=== PATIENT | female | born 1985 | race Caucasian/White ===

== ENCOUNTER 2016-11-11 07:32 | Emergency (ER) | payer OTHER ==
[2016-11-11] MEDS ORDERED: ZOFRAN IV ONE (07:47)
[2016-11-11] MEDS ORDERED: NS 1,000 ML IV ONE (07:47)
[2016-11-11] MEDS ORDERED: MORPHINE IV ONE (07:49)
[2016-11-11 08:39] LABS: MANUAL DIFF NEEDED? NO
[2016-11-11 08:43] LABS: BASO% 0.2 % (0.0-0.8); EOS# 0.27 X1000 (0.0-0.7); EOS% 4.2 % (0.0-10.0); HEMATOCRIT 32.3 % (37.0-47.0); HEMOGLOBIN 9.8 g/dL (12.0-16.0); LYMPH# 1.56 X1000 (1.2-3.4); LYMPH% 24.1 % (20.5-51.1); MCHC 30.3 g/dL (33-37); MONO% 6.2 % (1.7-9.3); MPV 10.2 FL (7.4-10.4); NEUT% 65.3 % (42.2-75.2); PLT 227 X1000 (130-400); RBC 4.09 XMIL (4.2-5.4)
--- NOTE | 2016-11-11 08:44 | PROVIDER DOCUMENTATION ---
HPI-Abdominal Pain/GI Problem - General Chief Complaint: Post Op Complaint Stated Complaint: POST OP COMPLAINT,NEAR SYNCOPE Time Seen by Provider: 11/11/16 07:46 Source: patient Allergies/Adverse Reactions: Patient Allergies Allergy/AdvReac Type Severity Reaction Status Date / Time shellfish derived Allergy Unknown Verified 11/11/16 08:03 Home Medications: Home Medication List Medication Instructions Recorded Confirmed Last Taken Type Estradiol 10 mg PO DAILY 11/11/16 11/11/16 11/11/16 History Hydrocodone/Acetaminophen [[place] 1 each PO Q4-6H PRN PRN 11/11/16 11/11/1611/11 History 7.5-325 Tablet] Nitrofurantoin Monohyd/M-Cryst 100 mg PO BID #20 capsule 11/11/16 Unknown Rx [Macrobid 100 mg Capsule] Tramadol [Ultram] 50 mg PO Q8HR PRN #10 tablet 11/11/16 Unknown Rx - History of Present Illness-ABD Nature of Presenting Problems: Reports abd pain with off and on post op bleeding since her hyst on 10/19/[address] Dye at [facility]. Was checked out at [facility] ER X [address] scan etc done. Saw Dr. Dye 4 days ago at his office. He put some brown staff at her wound. Reports her bleeding worsened and soaked 5 pads since last night. Pt r/o pain meds. Abdominal Pain Onset Location: reports: suprapubic Pain Radiation: reports: no radiation Quality of Pain: reports: aching, cramping, sharp Severity in ED: reports: moderate Onset/Duration: reports: other (More than 3 weeks ago) Timing: reports: still present Activities at Onset: reports: none Exposure to sick contacts?: No Modifying Factors: improves with: lying down, rest. worse with: movement Associated Symptoms: reports: nausea, vomiting. denies: anxiety, seizure Last BM: unsure Rectal Bleeding: reports: none Rectal Pain: reports: none Bruising or Bleeding Gums?: No Similar Symptoms Previously?: Yes Recently seen or treated by another doctor?: Yes Review of Systems - Adult - REVIEW OF SYSTEMS - ADULT Constitutional: reports: no symptoms reported, fatique. denies: chills, fever Eyes: reports: no symptoms reported Ears, Nose, Mouth & Throat: reports: no symptoms reported Cardiovascular: reports: no symptoms reported Respiratory: reports: no symptoms reported Gastrointestinal: reports: no symptoms reported Genitourinary: reports: no symptoms reported, see HPI. denies: frequent UTI's, hematuria, hesitency, urinary retention Musculoskeletal: reports: no symptoms reported Integumentary: reports: no symptoms reported Neurological: reports: no symptoms reported Psychiatric: reports: no symptoms reported Endocrine: reports: no symptoms reported Allergic/Immunologic: reports: no symptoms reported All Other Systems: Reviewed and Negative Past History - Adult - PAST MEDICAL HISTORY-ADULT Review of Records: reports: Nursing Assessment Review, Medications Reviewed, Social history reviewed & non-contributory. Physical Exam-General - CONSTITUTIONAL General Appearance: alert, no apparent distress - EYES Eyes: PERRL/EOMI, pink conjunctivae - HEAD, EARS, NOSE, MOUTH & THROAT HENMT: normocephalic/atraumatic, moist mucous membranes, normal ENT inspection, TMs normal, pharynx normal - NECK Neck: non-tender, full range of motion, supple - RESPIRATORY Respiratory: chest non-tender, lungs clear, normal breath sounds, no pleuratic chest pain, no respiratory distress, no accessory muscle use - CARDIOVASCULAR Cardiovascular: normal peripheral pulses, regular rate, rhythm, no edema, no gallop, no JVD - GASTROINTESTINAL (ABDOMEN) Abdominal Exam: normal bowel sounds, soft, no organomegaly, no pulsatile mass, tenderness (Diffused suprapubic tenderness, no guarding and no rebound.). negative: distended, rigid, rebound, hernia, mass, hepatomegaly, spleenomegaly, McBurney's point tenderness, prominent aortic pulsations - GENITOURINARY Female Genitalia/Pelvic Exam: other (External genitalia area normal appearance. Pt has a tiny spot of old blood in the hygine pat.) Rectal Exam: deferred - LYMPHATIC Lymphatic: no adenopathy Progress - PLAN OF CARE/RESULTS Progress/Plan/Lab Results: Laboratory Results - last 24 hr 11/11/16 11/11/16 11/11/16 08:18 08:18 08:18 WBC 6.47 RBC 4.09 L Hgb 9.8 L Hct 32.3 L MCV 79.0 L MCH 24.0 L MCHC 30.3 L RDW Std Deviation 15.8 H Plt Count 227 MPV 10.2 Immature Gran % (Auto) 0.0 Neut % (Auto) 65.3 Lymph % (Auto) 24.1 Pershing % (Auto) 6.2 Eos % (Auto) 4.2 Baso % (Auto) 0.2 Immature Gran # (Auto) 0.00 Neut # (Auto) 4.23 Lymph # (Auto) 1.56 Pershing # (Auto) 0.40 Eos # (Auto) 0.27 Baso # (Auto) 0.01 PT INR PTT (Actin FS) D-Dimer 0.60 H Sodium 139 Potassium 3.7 Chloride 100 Carbon Dioxide 26 Anion Gap 13 BUN 7 L Creatinine 0.7 Estimated GFR/1.73 m2 > 60 BUN/Creatinine Ratio 10 Glucose 85 Calculated Osmolality 275 Calcium 9.6 Total Bilirubin 0.68 AST 14 ALT 6 L Alkaline Phosphatase 87 Total Protein 7.6 Albumin 4.3 Globulin 3.3 Albumin/Globulin Ratio 1.3 Amylase 20 Lipase 17 Urine Source Urine Color Urine Turbidity Urine pH Ur Specific [place] Urine Protein Ur Glucose (Stick) Ur Ketones (Stick) Urine Blood Urine Nitrite Urine Bilirubin Urobilinogen Dipstick Urine Leukocytes Urine WBC (Auto) Urine RBC (Auto) U Epithel Cells (Auto) Urine Bacteria (Auto) Urine Opiates Screen Ur Oxycodone Screen Ur Methadone, Qual Ur Barbiturates Screen Ur Phencyclidine Scrn Ur Amphetamines Screen U Benzodiazepines Scrn Urine Cocaine Screen U Cannabinoids Screen Plasma/Serum Ethyl Alc 11/11/16 11/11/16 11/11/16 08:18 08:18 08:36 WBC RBC Hgb Hct MCV MCH MCHC RDW Std Deviation Plt Count MPV Immature Gran % (Auto) Neut % (Auto) Lymph % (Auto) Pershing % (Auto) Eos % (Auto) Baso % (Auto) Immature Gran # (Auto) Neut # (Auto) Lymph # (Auto) Pershing # (Auto) Eos # (Auto) Baso # (Auto) PT 11.4 INR 1.07 PTT (Actin FS) 30.4 D-Dimer Sodium Potassium Chloride Carbon Dioxide Anion Gap BUN Creatinine Estimated GFR/1.73 m2 BUN/Creatinine Ratio Glucose Calculated Osmolality Calcium Total Bilirubin AST ALT Alkaline Phosphatase Total Protein Albumin Globulin Albumin/Globulin Ratio Amylase Lipase Urine Source CLEAN CATCH Urine Color YELLOW Urine Turbidity CLEAR Urine pH 5.5 Ur Specific [place] 1.006 Urine Protein NEGATIVE Ur Glucose (Stick) NEGATIVE Ur Ketones (Stick) NEGATIVE Urine Blood MODERATE A Urine Nitrite NEGATIVE Urine Bilirubin NEGATIVE Urobilinogen Dipstick NORMAL Urine Leukocytes MODERATE A Urine WBC (Auto) 10-20 A Urine RBC (Auto) TNTC A U Epithel Cells (Auto) <10 Urine Bacteria (Auto) NEGATIVE Urine Opiates Screen Ur Oxycodone Screen Ur Methadone, Qual Ur Barbiturates Screen Ur Phencyclidine Scrn Ur Amphetamines Screen U Benzodiazepines Scrn Urine Cocaine Screen U Cannabinoids Screen Plasma/Serum Ethyl Alc 11/11/16 08:36 WBC RBC Hgb Hct MCV MCH MCHC RDW Std Deviation Plt Count MPV Immature Gran % (Auto) Neut % (Auto) Lymph % (Auto) Pershing % (Auto) Eos % (Auto) Baso % (Auto) Immature Gran # (Auto) Neut # (Auto) Lymph # (Auto) Pershing # (Auto) Eos # (Auto) Baso # (Auto) PT INR PTT (Actin FS) D-Dimer Sodium Potassium Chloride Carbon Dioxide Anion Gap BUN Creatinine Estimated GFR/1.73 m2 BUN/Creatinine Ratio Glucose Calculated Osmolality Calcium Total Bilirubin AST ALT Alkaline Phosphatase Total Protein Albumin Globulin Albumin/Globulin Ratio Amylase Lipase Urine Source Urine Color Urine Turbidity Urine pH Ur Specific [place] Urine Protein Ur Glucose (Stick) Ur Ketones (Stick) Urine Blood Urine Nitrite Urine Bilirubin Urobilinogen Dipstick Urine Leukocytes Urine WBC (Auto) Urine RBC (Auto) U Epithel Cells (Auto) Urine Bacteria (Auto) Urine Opiates Screen PRESUMPTIVE POSITIVE A Ur Oxycodone Screen NONE DETECTED Ur Methadone, Qual NONE DETECTED Ur Barbiturates Screen NONE DETECTED Ur Phencyclidine Scrn NONE DETECTED Ur Amphetamines Screen NONE DETECTED U Benzodiazepines Scrn NONE DETECTED Urine Cocaine Screen NONE DETECTED U Cannabinoids Screen NONE DETECTED Plasma/Serum Ethyl Alc Orders Category Date Time Status Saline Loc DIRECTED Care 11/11/16 07:47 Active NPO Diet 11/11/16 07:47 Active ABDOMEN/PELVIS W/CONTRAST [CT] Stat Exams 11/11/16 09:26 Draft AMYLASE [CHEM] Stat Lab 11/11/16 08:18 Completed CBC WITH ELECTRONIC DIFF [HEME] Stat Lab 11/11/16 08:18 Completed COMPREHENSIVE METABOLIC PANEL [CHEM] Stat Lab 11/11/16 08:18 Completed D-DIMER [CHEM] Stat Lab 11/11/16 08:18 Completed ETOH [ALCOHOL BLOOD] Stat Lab 11/11/16 08:18 Completed LIPASE [CHEM] Stat Lab 11/11/16 08:18 Completed PROTIME WITH INR [COAG] Stat Lab 11/11/16 08:18 Completed PTT [COAG] Stat Lab 11/11/16 08:18 Completed URINALYSIS W/POSS RFLX CULT [URINALYSIS] Stat Lab 11/11/16 08:36 Completed URINE CULTURE [RM] Routine Lab 11/11/16 10:00 Received URINE DRUG SCREEN Stat Lab 11/11/16 08:36 Completed 0.9% Sodium Chloride Inj [Ns] 1,000 ml Med 11/11/16 07:47 Discontinued IV 999 mls/hr CefTRIAXONE 1 GM/NS [Rocephin 1 gm/Ns] 50 ml Med 11/11/16 10:06 Active IV NOW Morphine Med 11/11/16 07:49 Discontinued 4 mg IV NOW ONE Ondansetron [Zofran] Med 11/11/16 07:47 Discontinued 4 mg IV NOW ONE Orders Category Date Time Status Saline Loc DIRECTED Care 11/11/16 07:47 Active NPO Diet 11/11/16 07:47 Active ABDOMEN/PELVIS W/CONTRAST [CT] Stat Exams 11/11/16 09:26 Draft AMYLASE [CHEM] Stat Lab 11/11/16 08:18 Completed CBC WITH ELECTRONIC DIFF [HEME] Stat Lab 11/11/16 08:18 Completed COMPREHENSIVE METABOLIC PANEL [CHEM] Stat Lab 11/11/16 08:18 Completed D-DIMER [CHEM] Stat Lab 11/11/16 08:18 Completed ETOH [ALCOHOL BLOOD] Stat Lab 11/11/16 08:18 Completed LIPASE [CHEM] Stat Lab 11/11/16 08:18 Completed PROTIME WITH INR [COAG] Stat Lab 11/11/16 08:18 Completed PTT [COAG] Stat Lab 11/11/16 08:18 Completed URINALYSIS W/POSS RFLX CULT [URINALYSIS] Stat Lab 11/11/16 08:36 Completed URINE CULTURE [RM] Routine Lab 11/11/16 10:00 Received URINE DRUG SCREEN Stat Lab 11/11/16 08:36 Completed 0.9% Sodium Chloride Inj [Ns] 1,000 ml Med 11/11/16 07:47 Discontinued IV 999 mls/hr CefTRIAXONE 1 GM/NS [Rocephin 1 gm/Ns] 50 ml Med 11/11/16 10:06 Active IV NOW Morphine Med 11/11/16 07:49 Discontinued 4 mg IV NOW ONE Ondansetron [Zofran] Med 11/11/16 07:47 Discontinued 4 mg IV NOW ONE - REASSESSMENT Reassessment #1 Time Reassessed: 10:25 Status: improving (Pt is doing better and no active bleeding at ER. Agrees to follow up with Dr. Hdez next Monday.) - CT/MRI 1 Impression: Abnormal (CT A+P - severe constipation. No other complications.) Departure - Departure Time of Disposition Order: 10:25 DIAGNOSIS: Post-op pain Post-op bleeding Qualifiers: Surgical complication system/body Area: genitourinary Procedure type: genitourinary Qualified Code(s): N99.820 - Postprocedural hemorrhage of a genitourinary system organ or structure following a genitourinary system procedure UTI (urinary tract infection) Qualifiers: Urinary tract infection type: acute cystitis Hematuria presence: with hematuria Qualified Code(s): N30.01 - Acute cystitis with hematuria Constipation Qualifiers: Constipation type: unspecified constipation type Qualified Code(s): K59.00 - Constipation, unspecified Disposition: HOME Certified Medical Emergency: Emergent Condition: Stable Additional Instructions: Follow up with Dr. Dye next Monday for further management. Return to ER if your symptoms worsen. Prescriptions: Nitrofurantoin Monohyd/M-Cryst [Macrobid 100 mg Capsule] 100 mg PO BID #20 capsule Tramadol [Ultram] 50 mg PO Q8HR PRN #10 tablet PRN Reason: Pain Referrals: Singh Ferro [Primary Care Provider] -
[2016-11-11 08:46] LABS: URINE MICRO REVIEW NEEDED? NO; URINE SOURCE CLEAN CATCH
[2016-11-11 08:53] LABS: INR 1.07; PROTIME 11.4 Seconds (9.2-11.7); PTT 30.4 Seconds (22.0-36.0)
[2016-11-11 08:53] LABS: BILIRUBIN URINE NEGATIVE (NEGATIVE); BLOOD URINE MODERATE (NEGATIVE); COLOR YELLOW; GLUCOSE URINE NEGATIVE (NEGATIVE); LEUKOCYTES URINE MODERATE (NEGATIVE); NITRITE URINE NEGATIVE (NEGATIVE); PH URINE 5.5; PROTEIN URINE NEGATIVE (NEGATIVE); SP GRAVITY URINE 1.006; TURBIDITY URINE CLEAR (CLEAR); UR EPITHELIAL CELLS <10 /HPF (<10); URINE BACTERIA NEGATIVE /HPF; URINE CULTURE NEEDED? YES; URINE RBC TNTC /HPF (<10); UROBILINOGEN URINE NORMAL (NORMAL)
[2016-11-11 09:06] LABS: AGAP 13; ALBUMIN 4.3 g/dL (3.5-5.0); ALKALINE PHOSPHATASE 87 U/L (32-104); AMYLASE 20 U/L (20-200); BUN 7 mg/dL (8-22); CALCIUM 9.6 mg/dL (8.8-10.2); CHLORIDE 100 mmol/L (98-107); COSMO 275; GOT 14 U/L (10-30); GPT 6 U/L (10-36); LIPASE 17 U/L (13-60); POTASSIUM 3.7 mmol/L (3.5-5.1); SODIUM 139 mmol/L (136-145); TCO2 26 mmol/L (25-35); TOTAL BILIRUBIN 0.68 mg/dL (0.20-1.00); TOTAL PROTEIN 7.6 g/dL (6.3-8.3)
[2016-11-11 09:53] LABS: UR AMPHETAMINES QUAL NONE DETECTED (NONE DETECT); UR BARBITUATES QUAL NONE DETECTED (NONE DETECT); UR BENZODIAZEPIN QUAL NONE DETECTED (NONE DETECT); UR CANNABINOIDS QUAL NONE DETECTED (NONE DETECT); UR COCAINE QUAL NONE DETECTED (NONE DETECT); UR METHADONE QUAL NONE DETECTED (NONE DETECT); UR OPIATES QUAL PRESUMPTIVE POSITIVE (NONE DETECT); UR OXYCODONE QUAL NONE DETECTED (NONE DETECT); UR PCP QUAL NONE DETECTED (NONE DETECT)
--- NOTE | 2016-11-11 09:54 | Diag Imaging Result Document ---
PROCEDURE NAME: ABDOMEN/PELVIS W/CONTRAST - 11/11/2016 CT ABDOMEN AND PELVIS WITH INTRAVENOUS CONTRAST: A CT dose reduction protocol was used. COMPARISON: None. FINDINGS: The lung bases are clear and the heart size is normal. There are cholecystectomy clips. There is some mild benign pneumobilia. The pancreas, spleen, adrenals and kidneys are normal. There is very severe constipation throughout the colon diffusely. The uterus is absent. No abnormal mass or fluid collection. Urinary bladder and rectum are normal. Normal appendix. Bony structures are intact. IMPRESSION: Extremely severe constipation. MTDD
[2016-11-11] MEDS ORDERED: ROCEPHIN 1 GM/NS 50 ML IV ONE (10:06)
[2016-11-11] MEDS ORDERED: NORCO-5 PO ONE (11:30)
[2016-11-11 13:07] VITALS: BP 107/51
== END 2016-11-11 13:05 | disposition home or self-care (01) ==
LOC: ED 07:32
DX: N99.820 Postprocedural hemorrhage of a genitourinary system organ or structure following a genitourinary system procedure (principal); N30.01 Acute cystitis with hematuria; K59.00 Constipation, unspecified; G89.18 Other acute postprocedural pain; R10.9 Unspecified abdominal pain; R55 Syncope and collapse; R11.2 Nausea with vomiting, unspecified; R53.83 Other fatigue; R10.819 Abdominal tenderness, unspecified site
CPT/HCPCS: 74177; 80053; 81001; 82150; 83690; 85025; 85379; 85610; 85730; 87088; G0480; J0696; J2270; J2405; J7030; Q9967; 80320; 80324; 80345; 80346; 80349; 80353; 80358; 80361; 80365; 83992

== ENCOUNTER 2016-11-15 08:55 | Emergency (ER) ==
[2016-11-15 09:09] VITALS: BP 120/77
[2016-11-15] MEDS ORDERED: NORCO-7.5 PO ONE (09:20)
[2016-11-15] MEDS ORDERED: ZOFRAN ODT PO ONE (09:20)
--- NOTE | 2016-11-15 09:31 | PROVIDER DOCUMENTATION ---
HPI-Female /OB/Breast - General Chief Complaint: UTI Symptoms Stated Complaint: UTI SX Time Seen by Provider: 11/15/16 09:13 Source: reports: patient Allergies/Adverse Reactions: Patient Allergies Allergy/AdvReac Type Severity Reaction Status Date / Time shellfish derived Allergy Unknown Verified 11/11/16 08:03 Home Medications: Home Medication List Medication Instructions Recorded Confirmed Last Taken Type Estradiol 10 mg PO DAILY 11/11/16 11/11/16 11/11/16 History Hydrocodone/Acetaminophen [[place] 1 each PO Q4-6H PRN PRN 11/11/16 11/11/1611/11 History 7.5-325 Tablet] Nitrofurantoin Monohyd/M-Cryst 100 mg PO BID #20 capsule 11/11/16 Unknown Rx [Macrobid 100 mg Capsule] Tramadol [Ultram] 50 mg PO Q8HR PRN #10 tablet 11/11/16 Unknown Rx - History of Present Illness-Female /OB Nature of Presenting Problem: patient is a 31 y/o F that presents with 4days of dysuria, voiding small amounts of urine, n/v, and back pain. patient has recurrent UTIs. Patient was seen last week for vaginal bleeding and that is now just spotting. has f/u with . Does patient report she is ?: No Location of complaint: reports: suprapubic Radiation: reports: periumbilical Quality of Pain: reports: aching, burning Severity in ED: reports: mild Onset/Duration: reports: gradual, 4 days ago Timing: reports: still present, constant Context/Activities at Onset: reports: none Vaginal Symptoms: reports: no symptoms Vaginal Bleeding Amount: Spotting Urinary Symptoms: reports: dysuria, hesitancy, low back pain Modifying Factors: worse with: urinating Associated Symptoms: reports: back/neck pain, nausea, vomiting. denies: cough, diarrhea, fever/chills, loss of appetite Similar Symptoms Previously?: Yes Recently seen or treated by another doctor?: Yes Review of Systems - Adult - REVIEW OF SYSTEMS - ADULT Constitutional: denies: chills, fever Eyes: reports: no symptoms reported Ears, Nose, Mouth & Throat: reports: no symptoms reported Cardiovascular: denies: chest pain, palpitations, syncope Respiratory: denies: cough, dyspnea on exertion, pleurisy, shortness of breath, wheezing Gastrointestinal: reports: nausea, vomiting. denies: diarrhea Genitourinary: reports: dysuria, frequent UTI's, hesitency Musculoskeletal: reports: back pain. denies: joint pain, neck pain Integumentary: reports: no symptoms reported Neurological: reports: no symptoms reported Psychiatric: reports: no symptoms reported Endocrine: reports: no symptoms reported Hematologic/Lymphatic: reports: no symptoms reported Allergic/Immunologic: reports: no symptoms reported All Other Systems: Reviewed and Negative Past History - Adult - PAST MEDICAL HISTORY-ADULT Review of Records: reports: Old Records Reviewed, Nursing Assessment Review, Medications Reviewed Obstetrical/Gynecological: reports: endometriosis, ovarian cysts Genitourinary: reports: chronic UTI's - PRIOR SURGERIES/PROCEDURES Surgical/Procedure History: reports: cholecystectomy, hysterectomy - IMMUNIZATION STATUS Childhood Immunizations: See Nurse Assessment Flu Vaccine: See Nurse Assessment - FAMILY HISTORY Family History: reviewed, not pertinent - SOCIAL HISTORY Smoking: denies Living Situation: family Physical Exam-General - PHYSICAL EXAM-ADULT Initial Vital Signs Reviewed: Yes - CONSTITUTIONAL General Appearance: alert, no apparent distress - EYES Eyes: PERRL/EOMI, pink conjunctivae - HEAD, EARS, NOSE, MOUTH & THROAT HENMT: normocephalic/atraumatic, moist mucous membranes, normal ENT inspection - NECK Neck: full range of motion, normal inspection. negative: lymphadenopathy - RESPIRATORY Respiratory: lungs clear, normal breath sounds, no respiratory distress, no accessory muscle use - CARDIOVASCULAR Cardiovascular: regular rate, rhythm, no edema, no murmur - GASTROINTESTINAL (ABDOMEN) Abdominal Exam: normal bowel sounds, non tender, soft, no organomegaly, no pulsatile mass - MUSCULOSKELETAL Back Exam: no CVA tenderness, no vertebral tenderness Extremity: normal range of motion, normal inspection, normal capillary refill - SKIN Integumentary: normal color, warm/dry - NEUROLOGIC Neurologic: grossly normal, no motor/sensory deficits - PSYCHIATRIC Psych/Mental Status: normal mood/affect, normal thought content, normal thought process, oriented x 3 Progress - PLAN OF CARE/RESULTS Progress/Plan/Lab Results: plan of care-ua, meds Vital Signs Temp Pulse Resp BP Pulse Ox 11/15/16 09:07 98 F 97 H 20 120/77 99 shellfish derived Allergy (Verified 11/11/16 08:03) Unknown Estradiol 10 mg PO DAILY 11/11/16 Hydrocodone/Acetaminophen [[place] 7.5-325 Tablet] 1 each PO Q4-6H PRN PRN Nitrofurantoin Monohyd/M-Cryst [Macrobid 100 mg Capsule] 100 mg PO BID #20 capsule 11/11/16 Tramadol [Ultram] 50 mg PO Q8HR PRN #10 tablet 11/11/16 Laboratory 11/15/16 11/15/16 09:55 09:55 Urine Source CLEAN CATCH Urine Color YELLOW Urine Clarity VERY CLOUDY A Urine pH 5.0 Ur Specific [place] 1.025 Urine Protein TRACE A Urine Ketones NEGATIVE Urine Blood 4+ Urine Nitrite NEGATIVE Urine Bilirubin NEGATIVE Urine Urobilinogen NORMAL Urine Microscopic RBC 20-40 A Urine WBC 2+ A Urine Microscopic WBC 20-40 A Ur Epithelial Cells >10 A Urine Bacteria 2+ Urine Glucose NEGATIVE Urine Opiates Screen NONE DETECTED Ur Oxycodone Screen NONE DETECTED Urine Methadone Screen NONE DETECTED Ur Barbituates Screen NONE DETECTED Ur Tricyclics Screen NONE DETECTED Ur Phencyclidine Scrn NONE DETECTED Ur Amphetamines Screen NONE DETECTED U Methamphetamines Scrn NONE DETECTED Urine MDMA Screen NONE DETECTED U Benzodiazepines Scrn NONE DETECTED Urine Cocaine Screen NONE DETECTED U Cannabinoids Screen NONE DETECTED Orders Category Date Time Status URINALYSIS PL W/POSS RFLX CULT [URINALYSIS] Stat Lab 11/15/16 09:55 Completed URINE CULTURE [RM] Routine Lab 11/15/16 10:[address]UG S[address]EN [address] Stat Lab 11/15/16 09:55 Completed CefTRIAXONE [Rocephin] Med 11/15/16 10:26 Discontinued 1 gm IM NOW ONE Hydrocodone/APAP 7.5 mg/325 mg [Sigurd-7.5] Med 11/15/16 09:20 Discontinued 1 each PO NOW ONE Lidocaine 1% Pf [Xylocaine-Mpf 1%] Med 11/15/16 10:26 Discontinued 5 ml INJ NOW ONE Ondansetron Odt [Zofran Odt] Med 11/15/16 09:20 Discontinued 4 mg PO NOW ONE pt will be d/c home f/u with pcp, rx given, pt was clinically stable Departure - Departure Time of Disposition Order: 10:36 DIAGNOSIS: UTI (urinary tract infection) Qualifiers: Urinary tract infection type: acute cystitis Hematuria presence: with hematuria Qualified Code(s): N30.01 - Acute cystitis with hematuria Disposition: HOME 01 Certified Medical Emergency: Emergent Condition: Stable Additional Instructions: ED Follow Up Instructions: You have been treated by a care provider in the Emergency Department. These instructions are being provided to you so you can have an understanding of how to care for yourself upon discharge. Upon discharge from the Emergency Department, you are responsible for making arrangements for follow-up care by a physician of your choice. Take all prescribed medications as directed. Return to the Emergency Department immediately for any new or worsening symptoms. You may call the Physician Referral phone number at [phone] to obtain a list of Physicians who are taking new patients. Instructions: Urinary Tract Infection, [id number] Attestation - Scribe Verification/Attestation Scribe:: Ricardo Carreon Acting as Scribe for:: Yuval Hoang Scribe documention review:: This chart was documented by a scribe and accurately reflects the service the provider performed and the decisions made by the provider. Physician Attestation - Physician Attestation I, the provider, attest to the following statement:: Yuval Hoang Physician documentation Attestation:: This documentation recorded by the scribe accurately reflects the service I personally performed and the decisions made by me.
[2016-11-15 10:01] LABS: URINE SOURCE CLEAN CATCH
[2016-11-15 10:10] LABS: BILIRUBIN URINE NEGATIVE (NEGATIVE); BLOOD URINE 4+ (NEGATIVE); CLARITY VERY CLOUDY (CLEAR); COLOR YELLOW; GLUCOSE URINE NEGATIVE (NEGATIVE); LEUKOCYTES URINE 2+ (NEGATIVE); NITRITE URINE NEGATIVE (NEGATIVE); PROTEIN URINE TRACE mg/dL (NEGATIVE); SP GRAVITY URINE 1.025; UR AMPHETAMINES QUAL NONE DETECTED (NONE DETECT); UR BARBITUATES QUAL NONE DETECTED (NONE DETECT); UR BENZODIAZEPIN QUAL NONE DETECTED (NONE DETECT); UR CANNABINOIDS QUAL NONE DETECTED (NONE DETECT); UR COCAINE QUAL NONE DETECTED (NONE DETECT); UR MDMA QUAL NONE DETECTED (NONE DETECT); UR METHADONE QUAL NONE DETECTED (NONE DETECT); UR METHAMPHETAMINE QUAL NONE DETECTED (NONE DETECT); UR OPIATES QUAL NONE DETECTED (NONE DETECT); UR OXYCODONE QUAL NONE DETECTED (NONE DETECT); UR PCP QUAL NONE DETECTED (NONE DETECT); UR TCA QUAL NONE DETECTED (NONE DETECT); UROBILINOGEN URINE NORMAL
[2016-11-15 10:24] LABS: URINE CULTURE PL NEEDED? YES; URINE EPITHELIAL CELLS >10 /HPF (<10); URINE RBC 20-40 /HPF (<10); URINE WBC 20-40 /HPF (<10)
[2016-11-15] MEDS ORDERED: ROCEPHIN IM ONE (10:26)
[2016-11-15] MEDS ORDERED: XYLOCAINE-MPF 1% INJ ONE (10:26)
== END 2016-11-15 11:33 | disposition home or self-care (01) ==
LOC: P.ED 08:55
DX: N30.01 Acute cystitis with hematuria (principal); R30.0 Dysuria; R11.2 Nausea with vomiting, unspecified; M54.5 Low back pain; R10.33 Periumbilical pain; R39.11 Hesitancy of micturition; Z87.440 Personal history of urinary (tract) infections; Z87.42 Personal history of other diseases of the female genital tract
CPT/HCPCS: 80305; 81001; 87088; 96372; J0696